=== PATIENT | female | born 1975 | race Two or more races ===

== ENCOUNTER 2019-06-28 10:54 | Emergency (ER) | payer OTHER ==
[~2019-06-28] VITALS: Ht 167.6 cm; Wt 70.3 kg
[~2019-06-28 10:54] MED LIST: AIRBORNE EFFER1 EACH PO; BACTRIM DS TAB1 EACH PO; FLUCONAZOLE150 MG PO; INTESTINEX680 M1 PO; PROZAC40 MG; PYRIDIUM DS200 MG PO; SPRINTEC 28 DA1 EACH; URIN D.S. TABL1 EACH PO
[2019-06-28] MEDS ORDERED: FLUOXETINE HCL40 MG PO (11:17)
[2019-06-28] MEDS ORDERED: ZOFRAN8 MG PO (14:59)
[2019-06-28] MEDS ORDERED: PEPCID AC20 MG PO (14:59)
== END 2019-06-28 15:40 | disposition home or self-care (01) ==
LOC: ER 10:54
DX: B34.9 Viral infection, unspecified (principal)

== ENCOUNTER 2020-01-20 08:39 | Emergency (ER) | payer OTHER ==
[~2020-01-20] VITALS: Ht 167.6 cm; Wt 68.0 kg
[~2020-01-20 08:39] MED LIST changes: +FLUOXETINE HCL40 MG PO; +PEPCID AC20 MG PO; +ZOFRAN8 MG PO
[2020-01-20] MEDS ORDERED: ADDERALL 10 MG10 MG (08:52)
[2020-01-20] MEDS ORDERED: FLUOXETINE HCL20 MG (08:52)
== END 2020-01-20 13:04 | disposition home or self-care (01) ==
LOC: ER 08:39
DX: B34.9 Viral infection, unspecified (principal); Z20.828 Contact with and (suspected) exposure to other viral communicable diseases

== ENCOUNTER 2021-08-07 11:59 | Emergency (ER) | payer OTHER ==
[~2021-08-07] VITALS: Ht 167.6 cm; Wt 70.3 kg
[~2021-08-07 11:59] MED LIST changes: +ADDERALL 10 MG10 MG; +FLUOXETINE HCL20 MG
[2021-08-07] MEDS ORDERED: UBRELVY100 MG PO (12:17)
[2021-08-07] MEDS ORDERED: MEDROLPACK PO (18:03)
[2021-08-07] MEDS ORDERED: MUCINEX DM ER1 EAC1 PO (18:03)
[2021-08-07] MEDS ORDERED: BUDESONIDE0.5 MG/2 M IH (18:03)
[2021-08-07] MEDS ORDERED: IPRAT-ALBUT 0.5-3 ML IH (18:03)
[2021-08-07] MEDS ORDERED: ZITHROMAX500 MG PO (18:06)
[2021-08-07] MEDS ORDERED: CORTISPORIN EAR10 M1 OPHT (18:06)
== END 2021-08-07 18:16 ==
LOC: ER 11:59
DX: J40 Bronchitis, not specified as acute or chronic (principal); Z20.822 Contact with and (suspected) exposure to COVID-19; Z91.013 Allergy to seafood

== ENCOUNTER 2021-08-10 12:31 | Emergency (ER) | payer OTHER ==
[~2021-08-10] VITALS: Ht 167.6 cm; Wt 74.8 kg
[~2021-08-10 12:31] MED LIST changes: +BUDESONIDE0.5 MG/2 M IH; +CORTISPORIN EAR10 M1 OPHT; +IPRAT-ALBUT 0.5-3 ML IH; +MEDROLPACK PO; +MUCINEX DM ER1 EAC1 PO; +UBRELVY100 MG PO; +ZITHROMAX500 MG PO
== END 2021-08-10 18:08 | disposition home or self-care (01) ==
LOC: ER 12:31
DX: J20.9 Acute bronchitis, unspecified (principal); Z20.822 Contact with and (suspected) exposure to COVID-19